=== PATIENT | female | born 1950 | race Caucasian/White ===

== ENCOUNTER 2017-12-21 11:13 | Outpatient (CLI) | payer MEDICARE | END 2017-12-21 11:14 | disposition home or self-care (01) | LOC: BICMAMMO 11:13 | PROVIDERS: ATTEND Family Medicine | DX: Z12.31 Encounter for screening mammogram for malignant neoplasm of breast (principal); Z80.3 Family history of malignant neoplasm of breast | CPT/HCPCS: 77063; 77067 ==

== ENCOUNTER 2019-03-20 10:50 | Outpatient (CLI) | payer MEDICARE ==
--- NOTE | 2019-03-20 13:54 | MMO ---
Bilateral MAMMO Bilat Screen [facility]. CLINICAL HISTORY: Patient is 68 years old and is seen for screening. The patient has the following family history of breast cancer: sister, at age 40. The patient has no personal history of cancer. VIEWS: The views performed were: bilateral craniocaudal with tomosynthesis and bilateral mediolateral oblique with tomosynthesis. FILMS COMPARED: The present examination has been compared to prior imaging studies performed at [facility] on 07/09/2014, 08/16/2015, 10/27/2016 and 12/21/2017. MAMMOGRAM FINDINGS: The breasts are heterogeneously dense, which could obscure a lesion on mammography. Benign calcifications are noted bilaterally. Nodularity is stable. There are no suspicious masses, suspicious calcifications, or new areas of architectural distortion. IMPRESSION: THERE IS NO MAMMOGRAPHIC EVIDENCE OF MALIGNANCY. A ROUTINE FOLLOW-UP MAMMOGRAM IN 1 YEAR IS RECOMMENDED. THE RESULTS OF THIS EXAM WERE SENT TO THE PATIENT. ACR BI-RADS Category 2 - Benign finding MAMMOGRAPHY NOTE: 1. A negative mammogram report should not delay a biopsy if a dominant of clinically suspicious mass is present. 2. Approximately 10% to 15% of breast cancers are not detected by mammography. 3. Adenosis and dense breasts may obscure an underlying neoplasm. Reported by: KELLY POOLE MD Electonically Signed: [id number]
== END 2019-03-20 10:51 | disposition home or self-care (01) ==
LOC: BICMAMMO 10:50
PROVIDERS: ATTEND Family Medicine
DX: Z12.31 Encounter for screening mammogram for malignant neoplasm of breast (principal); Z80.3 Family history of malignant neoplasm of breast
CPT/HCPCS: 77063; 77067

== ENCOUNTER 2020-08-23 10:13 | Outpatient (CLI) | payer MEDICARE ==
--- NOTE | 2020-08-23 10:50 | MMO ---
Bilateral MAMMO Bilat Screen [facility]. CLINICAL HISTORY: Patient is 69 years old and is seen for screening. The patient has the following family history of breast cancer: sister, at age 40. The patient has no personal history of cancer. VIEWS: The views performed were: bilateral craniocaudal with tomosynthesis and bilateral mediolateral oblique with tomosynthesis. FILMS COMPARED: The present examination has been compared to prior imaging studies performed at [facility] on 08/16/2015, 10/27/2016, 12/21/2017 and 03/20/2019. This study has been interpreted with the assistance of computer-aided detection. MAMMOGRAM FINDINGS: The breasts are heterogeneously dense, which could obscure a lesion on mammography. Benign calcifications are noted bilaterally. There are no suspicious masses, suspicious calcifications, or new areas of architectural distortion. IMPRESSION: THERE IS NO MAMMOGRAPHIC EVIDENCE OF MALIGNANCY. A ROUTINE FOLLOW-UP MAMMOGRAM IN 1 YEAR IS RECOMMENDED. THE RESULTS OF THIS EXAM WERE SENT TO THE PATIENT. ACR BI-RADS Category 2 - Benign finding MAMMOGRAPHY NOTE: 1. A negative mammogram report should not delay a biopsy if a dominant of clinically suspicious mass is present. 2. Approximately 10% to 15% of breast cancers are not detected by mammography. 3. Adenosis and dense breasts may obscure an underlying neoplasm. Reported by: KELLY POOLE MD Electonically Signed: [id number]
--- NOTE | 2020-08-23 11:09 | BD ---
EXAM: Bone densitometry using DEXA HISTORY: 69 yo female. Screening for postmenopausal osteoporosis FINDINGS: L1--bone mineral density 0.976 g/sq cm; T score -0.1 ; Z score 1.8 L2--bone mineral density 0.968 g/sq cm; T score -0.5 ; Z score 1.6 L3--bone mineral density 1.061 g/sq cm; T score -0.2 ; Z score 2.1 L4--bone mineral density 0.916 g/sq cm; T score -1.3 ; Z score 1.1 Total L1-L4--bone mineral density 0.977 g/sq cm; T score -0.6 ; Z score 1.6 Left femoral neck--bone mineral density0.728; T score -1.1 ; Z score 0.8 Total proximal left femur--bone mineral density 0.910; T score -0.3 ; Z score 1.3 There has been an interval increase of 3.3% in the BMD of the lumbar spine and a decrease of 4.5% i n the BMD of the proximal femur since the previous study of 01/12/2017. The 10 year fracture risk for a major osteoporotic fracture is 9.3% and for a hip fracture is 1.1%. IMPRESSION: Osteopenia
== END 2020-08-23 10:14 | disposition home or self-care (01) ==
LOC: BICMAMMO 10:13
PROVIDERS: ATTEND Nurse Practitioner Family
DX: Z12.31 Encounter for screening mammogram for malignant neoplasm of breast (principal); Z13.820 Encounter for screening for osteoporosis; M85.89 Other specified disorders of bone density and structure, multiple sites; Z78.0 Asymptomatic menopausal state; Z80.3 Family history of malignant neoplasm of breast
CPT/HCPCS: 77063; 77067; 77080

== ENCOUNTER 2020-08-23 12:53 | Outpatient (CLI) | payer MEDICARE ==
--- NOTE | 2020-08-23 15:03 | CT ---
CT Pulmonary Lung Scan HISTORY: Nicotine dependence. Previous smoker of 1 pack a day for 25 years. She quit 15 years ago COMPARISON: None. FINDINGS: There is a 12 mm calcified nodule in the peripheral right upper lobe consistent with old granulomatou s disease. There are tiny solid appearing parenchymal nodules bilaterally with upper lobe dominance. No pneumothoraces, focal areas of consolidation, pleural or pericardial effusions are seen. There are degenerative changes in the spine. Upper abdominal tomograms demonstrate calcified gallstones. IMPRESSION: 1. Lung RADS 2. 2. Category S: Cholelithiasis Recommendations: A follow-up LDCT of the chest is recommended in 12 months
== END 2020-08-23 12:54 | disposition home or self-care (01) ==
LOC: BICCT 12:53
PROVIDERS: ATTEND Nurse Practitioner Family
DX: Z12.2 Encounter for screening for malignant neoplasm of respiratory organs (principal); K80.20 Calculus of gallbladder without cholecystitis without obstruction; Z87.891 Personal history of nicotine dependence
CPT/HCPCS: G0297

== ENCOUNTER 2021-09-29 13:21 | Outpatient (CLI) | payer MEDICARE | END 2021-09-29 13:22 | disposition home or self-care (01) | LOC: BICMAMMO 13:21 | PROVIDERS: ATTEND Family Medicine | DX: Z12.31 Encounter for screening mammogram for malignant neoplasm of breast (principal); Z80.3 Family history of malignant neoplasm of breast | CPT/HCPCS: 77063; 77067 ==

== ENCOUNTER 2023-04-19 13:28 | Outpatient (CLI) | payer MEDICARE | END 2023-04-19 13:29 | disposition home or self-care (01) | LOC: BICMAMMO 13:28 | PROVIDERS: ATTEND Nurse Practitioner Family | DX: Z12.31 Encounter for screening mammogram for malignant neoplasm of breast (principal); Z80.3 Family history of malignant neoplasm of breast | CPT/HCPCS: 77063; 77067 ==

== ENCOUNTER 2025-08-07 13:54 | Outpatient (CLI) | payer MEDICARE | END 2025-08-07 13:55 | disposition home or self-care (01) | LOC: BICMAMMO 13:54 | PROVIDERS: ATTEND Nurse Practitioner Family | DX: Z12.31 Encounter for screening mammogram for malignant neoplasm of breast (principal); Z80.3 Family history of malignant neoplasm of breast | CPT/HCPCS: 77063; 77067 ==